=== PATIENT | male | born 1995 | race Caucasian/White ===

== ENCOUNTER 2018-07-20 16:54 | Emergency (ER) | payer SELFPAY ==
[~2018-07-20] VITALS: Ht 188 cm; Wt 99.0 kg
[2018-07-20] MEDS ORDERED: ONDANSETRON ODT 4 MG PO ONE (18:00)
[2018-07-20 18:08] LABS: BASOPHILS # (AUTO) 0.01 x10^3/uL (0-0.1); BASOPHILS % (AUTO) 0 % (0-1); EOSINOPHILS # (AUTO) 0.03 x10^3/uL (0-0.4); EOSINOPHILS % (AUTO) 0 % (1-7); LYMPHOCYTES # (AUTO) 0.71 x10^3/uL (1-3.4); LYMPHOCYTES % (AUTO) 9 % (22-44); MD NO; MEAN CORPUSCULAR HEMOGLOBIN 29.9 pg (27.5-34.5); MEAN CORPUSCULAR HGB CONC 34.4 g/dL (33.2-36.2); MEAN CORPUSCULAR VOLUME 86.8 fL (81-97); MEAN PLATELET VOLUME 9.6 fL (7.4-10.4); MONOCYTES # (AUTO) 0.58 x10^3/uL (0.2-0.8); MONOCYTES % (AUTO) 7 % (2-9); NEUTROPHILS # (AUTO) 6.69 x10^3/uL (1.8-6.8); NEUTROPHILS % (AUTO) 83 % (42-75); PLATELET COUNT 181 x10^3/uL (130-400); RED BLOOD COUNT 5.58 x10^6/uL (4.38-5.82); RED CELL DISTRIBUTION WIDTH 13.6 % (9.4-14.8)
[2018-07-20 18:17] LABS: ALBUMIN 3.9 g/dL (3.4-5.0); ANION GAP 9 mmol/L (5-15); CALCIUM 8.8 mg/dL (8.5-10.1); CHLORIDE 104 mmol/L (98-107)
[2018-07-20 18:21] LABS: ALANINE AMINOTRANSFERASE 37 U/L (12-78); ALKALINE PHOSPHATASE 90 U/L (45-117); BILIRUBIN,TOTAL 0.5 mg/dL (0.2-1.0); CREATININE 1.11 mg/dL (0.7-1.3); TOTAL PROTEIN 7.5 g/dL (6.4-8.2)
[2018-07-20] MEDS ORDERED: MAALOX/HYOSCYAMINE/LIDOCAINE 45 ML BTL ONE (19:41)
[2018-07-20] MEDS ORDERED: MAALOX/HYOSCYAMINE/LIDOCAINE 45 ML BTL PO ONE (20:00)
[2018-07-20 20:19] LABS: MICROSCOPIC NOT IND
[2018-07-20 20:34] LABS: CULTURE INDICATED? NO
[2018-07-20 20:49] VITALS: BP 127/72
== END 2018-07-20 20:51 | disposition home or self-care (01) ==
LOC: ED 20:45
DX: K29.00 Acute gastritis without bleeding (principal); K59.00 Constipation, unspecified
CPT/HCPCS: 36415; 74021; 80053; 81003; 83690; 85025; 99284

== ENCOUNTER 2018-08-28 16:48 | Emergency (ER) | payer MEDICAID ==
[~2018-08-28] VITALS: Ht 188 cm; Wt 100.0 kg
[2018-08-28 17:00] VITALS: BP 118/54
[2018-08-28] MEDS ORDERED: METHOCARBAMOL 750 MG TABLET ONE (17:59)
[2018-08-28] MEDS ORDERED: KETOROLAC 30 MG/1 ML IM ONE (18:00)
[2018-08-28] MEDS ORDERED: KETOROLAC 30 MG/1 ML ONE (18:00)
[2018-08-28] MEDS ORDERED: METHOCARBAMOL 750 MG TABLET PO ONE (18:00)
--- NOTE | 2018-08-28 18:47 | NUR ---
PT REPORTS SIGNIFICANT IMPROVEMENT IN PAIN WITH MEDICATIONS. PT AMBULATED STEADILY TO DC WITH RN AND SO. SO TO TRANSPORT PT HOME.
== END 2018-08-28 18:49 | disposition home or self-care (01) ==
LOC: ED 17:46
DX: M54.5 Low back pain (principal); M62.830 Muscle spasm of back; F17.200 Nicotine dependence, unspecified, uncomplicated
CPT/HCPCS: 96372; 99283; J1885